=== PATIENT | female | born 1990 ===

== ENCOUNTER 2017-08-02 04:58 | Inpatient (IN) | payer MEDICAID, OTHER ==
[2017-08-02 05:15] VITALS: BMI 32.1
[2017-08-02] MEDS: Lactated Ringer's 1,000 ML IV SCH ×3 (05:25→19:52)
[2017-08-02] MEDS ORDERED: Oxytocin 30 units/LR 500ML 30 U/500 ML BAG IV SCH (05:45)
[2017-08-02] MEDS ORDERED: Lactated Ringer's 1,000 ML IV SCH (05:45)
[2017-08-02] MEDS ORDERED: cefOXitin IV 1 gm in Dextrose 1 GM/50 ML BAG IVPB ONE (06:37)
[2017-08-02 06:44] LABS: BASO % 0.2 % (0.0-2.0); EOS # 0.1 K/uL (0.0-0.7); EOS % 0.7 % (0.0-4.0); HEMOGLOBIN 11.2 g/dL (12.0-16.0); LYMPH # 2.9 K/uL (1.0-4.3); LYMPH % 21.2 % (20.0-40.0); MEAN CELL VOLUME 89.7 fl (81.0-99.0); MEAN CORPUSCULAR HEMOGLOBIN 28.9 pg (27.0-31.0); MEAN CORPUSCULAR HGB CONC 32.2 g/dL (33.0-37.0); MONO % 7.4 % (0.0-10.0); NEUT # 9.7 K/uL (1.8-7.0); NEUT % 70.5 % (50.0-75.0); RBC 3.87 Mil/uL (3.80-5.20); RED CELL DISTRIBUTION WIDTH 13.7 % (11.5-14.5); WHITE BLOOD COUNT 13.8 K/uL (4.8-10.8)
[2017-08-02] MEDS ORDERED: Phenylephrine 10 mg/ml Inj ONE (08:04)
[2017-08-02] MEDS ORDERED: ePHEDrine 50 mg/ml Inj ONE (08:04)
[2017-08-02] MEDS ORDERED: Morphine 1 mg/ml preservative-free Inj(Duramorph) ONE (08:04)
[2017-08-02] MEDS ORDERED: DiphenhydrAMINE 50 mg/ml Inj IVP PRN ×2 (09:42→16:02)
[2017-08-02] MEDS ORDERED: Oxycodone/Acetaminophen 5/325 mg Tab PO PRN (10:24)
[2017-08-02] MEDS ORDERED: cefOXitin IV 1 gm in Dextrose 1 GM/50 ML BAG IVPB SCH (10:30)
--- NOTE | 2017-08-02 12:34 | OBDS ---
DELIVERY PERSONNEL Delivery Doctor: Jessica Schroeder MD Leadership Program Internship: Mac Mcfarland RN/Amairani SHANNON/Zac Montgomery RN Anesthesiologist: Jessica Pickens MD MATERNAL INFORMATION Medications in Delivery: Pitocin Estimated Blood Loss (ml): 800 Placenta Cultured: No Maternal Complications: None Other Maternal Complications: prev C/s Provider Comments: see Surgeons dictated note LABOR SUMMARY EDC: 08/09/2017 00:00 No. Babies in Womb: 1 Attempted: No Labor Anesthesia: None LABOR INFORMATION Reason for Induction: Not Applicable Oxytocin: N/A Antibiotics # of Doses: 1 Antibiotics Time of Last Dose: 826 Mefoxin 1 GM IVPB Steroids Given: None Reason Steroids Not Administered: Not Applicable MEMBRANES Membranes Rupture Method: Artificial Rupture of Membranes: 08/02/2017 09:23 Length of Rupture (hrs): 0.02 Amniotic Fluid Color: Clear Amniotic Fluid Amount: Moderate Amniotic Fluid Odor: Normal STAGES OF LABOR Stage 3 hrs: 0 Stage 3 min: 1 VAGINAL DELIVERY Episiotomy: None Laceration Extension: N/A Laceration Type: None Laceration Repair: Not Applicable Sponge Count Correct: Yes Sharps Count Correct: Yes Count Comment: count correct x3 CSECTION DELIVERY Primary Indication: Repeat Elective Secondary Indication: Repeat Elective CSection Urgency: Elective CSection Incidence: Repeat Labor: No Labor CSection Incision: Lower Uterine Transverse Sterilization Procedure: Marjan Uterine Closure: Double-layer closure BABY A INFORMATION Infant Delivery Date/Time: 08/02/2017 09:24 Method of Delivery: Born in Route : No : N/A Forceps: N/A Vacuum Extraction: N/A Shoulder Dystocia : No SHOULDER DYSTOCIA BABY A Infant Delivery Date/Time: 08/02/2017 09:24 PRESENTATION/POSITION BABY A Presentation: Cephalic Cephalic Presentation: Vertex Breech Presentation: N/A PLACENTA INFORMATION BABY A Placenta Delivery Time : 08/02/2017 09:25 Placenta Method of Delivery: Expressed Placenta Status: Delivered SCORES BABY A Heart Rate 1 min: >100 bpm Resp Effort 1 min: Good Cry Reflex Irritability 1 min: Cough or Sneeze or Pulls Away Muscle Tone 1 min: Active Motion Color 1 min: Blue/Pale Resuscitation Effort 1 min: Tactile Stimulation SCORE 1 MIN: 8 Heart Rate 5 min: >100 bpm Resp Effort 5 min: Good Cry Reflex Irritability 5 min: Cough or Sneeze or Pulls Away Muscle Tone 5 min: Active Motion Color 5 min: Body Ollie, Extremities Blue Resuscitation Effort 5 min: N/A SCORE 5 MIN: 9 INFORMATION BABY A Gestational Age at Delivery: 39.0 Gestational Status: Term Infant Outcome : Liveborn (Annotations: Data stored by [facility] on behalf of user) Infant Condition : Stable Sex: Female IDENTIFICATION/MEDS BABY A ID Band Number: [id number] ID Band Location: Left Leg; Left Arm Vitamin K Given : Not Given Erythromycin Given: Not Given WEIGHT/LENGTH BABY A Birthweight (gms): 3530 Infant Weight (lb): 7 Infant Weight (oz): 12 Length Inches: 21.00 Length cms: 53.3 CORD INFORMATION BABY A No. Cord Vessels: 3 Nuchal Cord : Around Neck x1, Loose Nuchal Cord Other: N/A True Knot: N/A Infant Cord pH Baby Arterial: N/A Infant Cord pH Baby Venous: N/A Cord Blood Taken: Yes Banking/Donate Info: N/A Infant Suction: Mouth; Nose; Pharynx ASSESSMENT BABY A Complications: None Physical Findings at Delivery: Within Normal Limits Respirations: Appears Normal Location Manager/ALS Called : No Care By: Dr Brown/ Deepali Bonilla RN/ Zac Montgomery RN Transferred To: Remains with Mother
--- NOTE | 2017-08-02 12:39 | OBADHP ---
Datetime: 08/02/2017 05:33 Admit Comment, IP Provider: CC: scheduled HPI: 26 YO @ 39 wks IUP presents to L_D for repeat . Pt endorsing good FM, no LOF, oc casional ctx and no VB. MD: Dr. Schroeder ObHx: 2011; STIs pos in past PMH: denies SurgH: , R inguinal hernia repair at age 8 FH: hx of HTN in family SH: denies ETOH, smoking and illict drug use Allergies: NKDA Meds: PNV PE GEN: NAD, nervous Cardio: S1S2 no additional heart sounds Resp: clear breath sounds b/l Abdomen: gravid, NT, BS+ Neuro: AAO x 3 Ext: NT, no edema noted FM: 130, catagory I A/P: 26 YO @ 39 wks IUP presents to L_D for scheduled repeat . GBS unk, HIV neg (1st tri), RPR neg (1st tri). -will admit pt to L_D -blood work -IVF -continue FM -anesthesiology consult Dalia Valdez PGY I Pelvic Type - PN: Not Done Extremities - PN: Normal Abdomen - PN: Normal Back - PN: Not Done Breast - PN: Not Done Lungs - PN: Normal Heart - PN: Normal Thyroid - PN: Not Done Neurologic - PN: Normal HEENT - PN: Normal General - PN: Normal FHR - Baseline A Provider: 130 Membranes, Provider: Intact IP Hx Assessment: The History has been Reviewed and is Current Vital Signs Provider: Reviewed; Within Normal Limits IP Chief Complaint: Scheduled Section NICHD Variability Prov Fetus A: Moderate 6-25bpm NICHD Accel Fetus A IP Provider: [id number] FHR Category Provider Fetus A: Category I Dilatation, Provider: 1 Effacement, Provider: 50 Genitourinary Exam: Normal DTRs - PN: Normal EGA AdmitDate IP: 39.0 IP Adm Impression: Term, intrauterine IP Admit Plan: Admit to unit; Initiate Section protocol
[2017-08-02] MEDS: cefOXitin IV 1 gm in Dextrose 1 GM/50 ML BAG IVPB SCH (16:17)
[2017-08-03] MEDS: cefOXitin IV 1 gm in Dextrose 1 GM/50 ML BAG IVPB SCH ×2 (00:09→08:45)
[2017-08-03] MEDS: Lactated Ringer's 1,000 ML IV SCH (05:49)
[2017-08-03 09:32] LABS: HEMOGLOBIN 10.4 g/dL (12.0-16.0); MEAN CELL VOLUME 89.8 fl (81.0-99.0); MEAN CORPUSCULAR HEMOGLOBIN 29.1 pg (27.0-31.0); MEAN CORPUSCULAR HGB CONC 32.4 g/dL (33.0-37.0); RBC 3.57 Mil/uL (3.80-5.20); RED CELL DISTRIBUTION WIDTH 13.8 % (11.5-14.5)
--- NOTE | 2017-08-03 10:36 | OBPPN ---
Datetime: 08/03/2017 10:29 PP Pain Prov: Within normal limits PP Nausea Prov: Denies PP Flatus Prov: Yes PP BM Prov: No PP Breasts Prov: Normal PP Heart Prov: Normal PP Lungs Prov: Normal PP Abdomen/Uterus Prov: Normal PP Lochia Prov: Normal PP Vulva/Perineum Prov: Normal PP CVA Tenderness Prov: Normal PP Extremities Prov: Normal PP C/S Incision Prov: Normal PP Progress Prov: Normal PP Impression Prov: Normal progression PP Plan Prov: Continue present management PP Progress Note Prov: stable po1 incision healing well dressing changed advance diet as tolerated m ay shower oob with assistance IP PP Procedures: None Vital Signs Provider PP: Reviewed; Within Normal Limits
[2017-08-03] MEDS: Oxycodone/Acetaminophen 5/325 mg Tab PO PRN ×2 (11:37→18:59)
[2017-08-04] MEDS: Oxycodone/Acetaminophen 5/325 mg Tab PO PRN ×2 (03:38→13:38)
[2017-08-04] MEDS: Silver Sulfadiazine 1% Cream (20 gm) TOP SCH ×3 (09:04→16:39)
--- NOTE | 2017-08-04 12:09 | OBPPN ---
Datetime: 08/04/2017 12:03 PP Pain Prov: Within normal limits PP Pain Prov comment: no SOB, chest or leg pains PP Nausea Prov: Denies PP Flatus Prov: Yes PP BM Prov: No PP Breasts Prov: Normal PP Lungs Prov: Normal PP Abdomen/Uterus Prov: Abnormal PP Lochia Prov: Normal PP Vulva/Perineum Prov: Normal PP CVA Tenderness Prov: Normal PP Extremities Prov: Normal PP C/S Incision Prov: Normal PP Progress Prov: Normal PP Comments Phys Exam Prov: breast not engorged NT; Abd soft not distended fundus firm at bel umb, incision ciean and dry no active bleeding or suppt Blister from dressing on rt side Sivadene cream a pplied Ext no calf tenderness PP Impression Prov: Normal progression PP Plan Prov: Continue present management PP Progress Note Prov: Continue PO and PP care, OOB and ambulation Dulcolax suppt this pm IP PP Procedures: None Vital Signs Provider PP: Reviewed
--- NOTE | 2017-08-05 08:10 | OBPPN ---
Datetime: 08/05/2017 08:08 PP Pain Prov: Within normal limits PP Pain Prov comment: No SOB, chest or leg pains PP Nausea Prov: Denies PP Flatus Prov: Yes PP BM Prov: Yes PP Breasts Prov: Normal PP Lungs Prov: Normal PP Abdomen/Uterus Prov: Abnormal PP Lochia Prov: Normal PP Vulva/Perineum Prov: Normal PP CVA Tenderness Prov: Normal PP Extremities Prov: Normal PP C/S Incision Prov: Normal PP Progress Prov: Normal PP Impression Prov: Normal progression PP Plan Prov: Discharge IP PP Procedures: None
--- NOTE | 2017-08-05 08:15 | OBDCSUM ---
Datetime: 08/05/2017 08:13 Discharged to, Provider: Home Follow up at, Provider: Dr Schroeder Disch Instr Activity: Bedrest; May be up to bathroom; May be up for meals; May Shower Disch Instr Diet: Regular Discharge Instructions, Provider: Routine instructions given Discharge Diagnosis, Provider: Term Delivered Discharge Time: 08/05/2017 08:13 Follow up in weeks, Provider: 1 wk Disch Referrals: None Contraception discussed, Prov: Yes Disch Activity Restrictions: No exercising; No lifting; No driving; Minimize walking; Minimize stair -climbing; No sexual activity; Nothing in vagina - [place], tampons, douche Contraception after Delivery: Tubal Ligation
[2017-08-05] MEDS: Oxycodone/Acetaminophen 5/325 mg Tab PO PRN (08:37)
[2017-08-05] MEDS: Silver Sulfadiazine 1% Cream (20 gm) TOP SCH (08:39)
[2017-08-05 19:15] VITALS: BP 127/70; PULSE 61; RESP 18; TEMP 97; O2SAT 98
== END 2017-08-05 14:20 | disposition home or self-care (01) | DRG 371 ==
LOC: H.EROB2 04:58 → H.L&D 05:25 → H.OB/GYN 16:06
PROVIDERS: ADMIT Specialist; ATTEND Specialist
PROC: 10D00Z1 Extraction of Products of Conception, Low, Open Approach (ICD-10-PCS; principal; 2017-08-02)
PROC: 0UL70ZZ Occlusion of Bilateral Fallopian Tubes, Open Approach (ICD-10-PCS; 2017-08-02)
PROC: 4A1HXCZ Monitoring of Products of Conception, Cardiac Rate, External Approach (ICD-10-PCS; 2017-08-02)
DX: O34.211 Maternal care for low transverse scar from previous cesarean delivery (principal); O69.81X0 Labor and delivery complicated by cord around neck, without compression, not applicable or unspecified; Z37.0 Single live birth; Z3A.39 39 weeks gestation of pregnancy; Z30.2 Encounter for sterilization